=== PATIENT | male | born 1945 | race Caucasian/White ===

== ENCOUNTER 2016-11-05 20:33 | Inpatient (IN) | payer OTHER ==
[~2016-11-05] VITALS: Ht 162.6 cm; Wt 66.3 kg
--- NOTE | ~2016-11-05 | PR ---
[place], [place] PROGRESS NOTE [id number] UNIT #: [id number] ROOM: 314 DOCTOR: YO ROSS BIRTHDATE: [birth year] DOS: 11/11/2016 CHIEF COMPLAINT: "Good morning." SUMMARY OF VISIT: The patient was assessed in the dining room where he had just finished up working with PT and OT. He engaged in conversation. He was a little standoffish this morning, but he answered my questions appropriately. MENTAL STATUS: Alert and oriented to person, place, approximate time. Mood is fairly stable. States that his sleep is better. Good appetite. No overt signs of auditory or visual hallucinations, delusions, or paranoia. PLAN: We will continue with the trazodone at 150 mg at bedtime to help with depression and sleep. He is on the maximum dose of Namenda and Exelon for his dementia. His Depakote was increased yesterday. His valproic acid level came back this morning at 64.4, which is in the therapeutic range. I am going to hold his Depakote where it is right now. Let us see how he does over the next couple of days and make adjustments as needed. Monitor for some behaviors, impulsivity, etc. DANTE ROSS CNP CM:PNTRANS [id number] YO ROSS 11/11/16 0854 interface
--- NOTE | ~2016-11-05 | PR ---
[place], [place] PROGRESS NOTE [id number] UNIT #: [id number] ROOM: 314 DOCTOR: MENDEL DUNN MD BIRTHDATE: [birth year] DOS: 11/14/2016 CHIEF COMPLAINT: "Yeah, they are making me do this work here." SUMMARY OF THE VISIT: The patient was interviewed as he was engaging in physical therapy and occupational therapy. He was pleasantly confused upon approach. When asked how long he has been here, he reported he has been here 8 weeks. He offered no other complaints. MENTAL STATUS: He is alert and oriented to person only. He was pleasant. Mood does seem to be trending towards euthymia. Affect is more appropriate. There is no mood lability. There is no hypomania or marcello. There are no auditory or visual hallucinations. No delusions are present. Short-term memory is exceedingly poor. PLAN: I will renew the Ativan so he has it if he needs it and recheck a valproic acid level in the a.m. The last level has been therapeutic. I will make certain that we are in a good range. We will go ahead and proceed with discharge then when psychiatrically stable. MENDEL DUNN MD CM:PNTRANS [id number] MENDEL DUNN MD 11/14/16 1049 interface
--- NOTE | ~2016-11-05 | DS ---
[place], [place] DISCHARGE SUMMARY NAME: [id number] UNIT #: [id number] ROOM: 314 DOCTOR: MENDEL DUNN MD BIRTHDATE: [birth year] DOS: 11/16/2016 CHIEF COMPLAINT: "It's almost time for breakfast." HISTORY OF PRESENT ILLNESS: This is a 71-year-old white male who is a resident of [facility] in [place], [place]. The patient prior to admission had become increasingly verbally and physically aggressive toward staff and others. Most recently, he had his Zoloft discontinued, and since that time, the staff has noticed that he is becoming increasingly more aggressive. He has been biting and kicking at staff. He has been exit seeking, and when redirected, has been verbally and physically aggressive towards staff. He has been increasingly more confused and disoriented and it has been increasingly more difficult to redirect him. Attempts to adjust his medications while at the long-term care facility have been unsuccessful and his behavior has continued to escalate, putting himself and others at risk for harm. He is admitted now to rule out any organic factors and to attempt to stabilize on medication while engaging in individual and leary milieu activity. PAST MEDICAL HISTORY: Remarkable for chronic back pain, Alzheimer's dementia, hypertension, major depression, recurrent, and vitamin D deficiency. SUMMARY OF HOSPITAL COURSE: The patient was maintained on his Namenda 10 mg twice daily and Exelon patch 13.3 mg daily, both of these being utilized to help maintain or improve ADLs, behavior, and cognition. He was started on Depakote 500 mg 3 times daily to decrease mood lability and was given trazodone 100 mg at bedtime, not only to aid sleep but to act as an antidepressant. Trazodone was eventually increased to 150 mg at bedtime with good results. The Depakote had a significant calming effect and his mood lability consistently stabilized to the point where he was bright and pleasant. He remained confused and disoriented, but he was able to engage in conversation and did not exhibit any type of verbal or physical aggression towards others. He tolerated the current medication regimen well, showing no sedation or somnolence. No other side effects were noted. He had improved sufficiently to return back to [facility] then on 11/16/2016. MENTAL STATUS AT DISCHARGE: The patient was alert and oriented to self, possibly place in that he knows he is in the hospital, but not necessarily where and he did not know how long he has been here. He did not remember being at [facility] and continued to say that he came here from home. He was bright and pleasant, however, and engaging. Most of his comments tended to be disoriented and rather vague responses. There was no hypomania or marcello. There were no acute auditory or visual hallucinations noted. Short-term memory was exceedingly poor. DISCHARGE DIAGNOSES: Major depression, recurrent, with psychotic features, and impulse control disorder as well as Alzheimer's dementia. PLAN: All of his scripts have been E-scribed to [facility]. He will return to [facility] in [place] where he will be followed by myself and my nurse practitioner, Elbert Castro. [place], [place] DISCHARGE SUMMARY NAME: IRISH SERRANO UNIT #: [id number] ROOM: 314 DOCTOR: MENDEL DUNN MD BIRTHDATE: [birth year] MENDEL DUNN MD CM:DISCHARG MENDEL DUNN MD 11/16/16 0955 interface
--- NOTE | ~2016-11-05 | PR ---
[place], [place] PROGRESS NOTE NAME: IRISH SERRANO UNIT #: [id number] ROOM: 309 DOCTOR: YO ROSS BIRTHDATE: [birth year] DOS: 11/10/2016 CHIEF COMPLAINT: "Good morning." SUMMARY OF VISIT: The patient was assessed in the dining room, where he just began eating breakfast. He engaged readily in conversation. Staff notes that he has done better over the last 24 hours. He had one episode for about an hour, where he was a little bit agitated, but he was redirectable, did not wish to have any p.r.n. medications nor did they feel that he needed it at that time. MENTAL STATUS: He is alert and oriented to person, place, approximate time. Mood has been fairly stable since he has been here. He did state that his sleep was much better last night, and he was pleased with that. PLAN: We will continue with the increased trazodone at 150 mg at bedtime. I increased yesterday. He is on the maximum dose of Namenda and Exelon for his dementia. His Depakote has just been increased over the last couple of days, he is doing better, I will go ahead and put an order in to check his valproic acid level tomorrow to see if it is trending up, and we will go from there. We will continue to engage in individual and leary milieu therapy with the plan to discharge when stable. DANTE ROSS CNP CM:PNTRANS [id number] YO ROSS 11/10/16 1145 interface
--- NOTE | ~2016-11-05 | PR ---
[place], [place] PROGRESS NOTE [id number] UNIT #: [id number] ROOM: 314 DOCTOR: YO ROSS BIRTHDATE: [birth year] DOS: 11/12/2016 CHIEF COMPLAINT: "Good morning." SUMMARY OF VISIT: The patient was interviewed in the dining room where he seemed initially very sad, almost tearful and could not tell me why. He said he just kind of feels a little bit low this morning. Discussed with nursing and they stated that he does have an episode of almost sundowning for about an hour in the afternoon and then he is fine, but other than that, he is very engaging, joking, pleasant and smiling. MENTAL STATUS: He is alert and oriented to person, place and approximate to time. Mood is a little depressed today. Good sleep and good appetite. No overt signs of auditory or visual hallucinations, delusions or paranoia. Does have some cognitive deficits. PLAN: I am going to continue with the meds where he is at now. I have discussed his situation with the nurses. They are going to keep an eye on him. His Depakote level is in the therapeutic range. Let me see how he does over the next 24 hours and see if he snaps out of this before I make some adjustments. DANTE ROSS CNP CM:PNTRANS [id number] YO ROSS 11/12/16 0948 interface
--- NOTE | ~2016-11-05 | PR ---
[place], [place] PROGRESS NOTE [id number] UNIT #: [id number] ROOM: 314 DOCTOR: YO ROSS BIRTHDATE: [birth year] DOS: 11/13/2016 CHIEF COMPLAINT: "Good morning." SUMMARY OF VISIT: The patient was assessed in the dining room after he had picked out his meals for the day. He engaged pleasantly in conversation. Good eye contact. Nursing notes that he has been very pleasant over the last 24 hours. No behaviors and actually did not have a sundowning episode last night since my medication adjustment. MENTAL STATUS: Alert and oriented to person, place, approximate time. Mood trending towards euthymic, good sleep, good appetite. No overt signs of auditory or visual hallucinations, delusions, or paranoia. He still has short-term memory deficits. PLAN: Continue with the current medications. We will monitor his Depakote level. The tearfulness that he had yesterday seems to have resolved, he is sleeping better. Good appetite. Again, very engaging. Most likely, we will continue to monitor and then discharge once stable. DANTE ROSS CNP CM:PNTRANS [id number] YO ROSS 11/13/16 1440 interface
--- NOTE | ~2016-11-05 | WRIGHTHP ---
[place], [place] PATIENT HISTORY AND PHYSICAL EXAM NAME[id number] UNIT #: [id number] ROOM: 309 DOCTOR: MENDEL DUNN MD BIRTHDATE: [birth year] DOS: 11/08/2016 CHIEF COMPLAINT: Almost time for breakfast. HISTORY OF PRESENT ILLNESS: This is a 71-year-old white male who is a resident of [facility] in [place]. The patient has become increasingly more verbally and physically aggressive toward staff and others. The patient most recently had his Zoloft discontinued and since that time, the staff there has noticed that he has become increasingly more aggressive. He has been biting and kicking at staff. He has been attempting to exit seek and when redirected, he becomes verbally and physically aggressive. The patient is extremely confused and disoriented and it is hard to redirect him. Attempts to adjust his medications following the discontinuation of his Zoloft have been unsuccessful and his behavior has continued to escalate thereafter. He is admitted now to rule out any organic factors to attempt to stabilize on medication with the ultimate plan to return back to [facility] in [place]. PAST MEDICAL HISTORY: Remarkable for chronic back pain, Alzheimer's dementia, hypertension, generalized anxiety disorder, major depression recurrent, and vitamin D deficiency. ALLERGIES: HE IS ALSO ALLERGIC TO CIPRO AND DONEPEZIL. MENTAL STATUS: The patient is alert and oriented to person only. He is unaware where he is at and when asked how long he has been here, he reports he has been here for 13 days. He states that he was living at home with his brother before he came into the hospital. He is not totally certain why he is here in the hospital other than he needs to get some type of help. He is very confused and disoriented. His responses tended to be short and simple and he confabulated quite frequently. There is no symptom suggestive of depression. There are no symptoms suggestive of hypomania or marcello. There is some delusional system noted. He processes slowly. Short term memory is exceedingly poor. DIAGNOSES: Brief psychotic disorder and Alzheimer dementia. PLAN: He has already been started and maintained on Namenda 10 mg twice daily, Exelon patch 13.3 mg daily. He has been started on Depakote 500 mg 3 times daily to decrease his mood lability and was given trazodone 100 mg at bedtime to aid his sleep. We will continue to rule out organic factors, continue to engage him in individual and leary milieu activity with the ultimate plan to return back to [facility] when stable. [place], [place] PATIENT HISTORY AND PHYSICAL EXAM NAME: IRISH SERRANO UNIT #: [id number] ROOM: 309 DOCTOR: MENDEL DUNN MD BIRTHDATE: [birth year] MENDEL DUNN MD CM:HISPHYS:PATIENT HISTORY AND PHYSICAL EXAMINATION [phone] MENDEL DUNN MD 11/08/16 0753 interface
--- NOTE | ~2016-11-05 | PR ---
[place], [place] PROGRESS NOTE NAME: IRISH SERRANO UNIT #: [id number] ROOM: 309 DOCTOR: YO ROSS BIRTHDATE: [birth year] DOS: 11/09/2016 CHIEF COMPLAINT: "I did not sleep well." SUMMARY OF VISIT: The patient was assessed in the dining room, where he was sitting in a wheelchair. He engaged in conversation and states that his sleep was really bad last night. He admits to having really bad mood swings that was one issue. I reviewed with the nurses this morning that his mood is quite labile throughout the day. He did state that he was little irritable this morning only because he was frustrated because of poor sleep. MENTAL STATUS: He is alert and oriented to person. I think place, unsure about time. He is having mood lability, no overt signs of auditory or visual hallucinations, delusions or paranoia. PLAN: I will try to affect his sleep if I can and thereby may be helping with his mood. I am going to increase his trazodone to 150 mg at bedtime. He is on the maximum dose of Namenda and Exelon for his dementia. His valproic acid level came back in the low therapeutic range of 52.9, but his Depakote had just been increased. I am going to see how he does over the next 24 hours. We can always adjust the Depakote if we need be, and we can go from there. We will continue to try to engage in individual and leary milieu therapy and with a plan to discharge once stable. DANTE ROSS CNP CM:PNTRANS [id number] YO ROSS 11/09/16 1015 interface
[2016-11-06] MEDS ORDERED: NORVASC5 MG PO (17:15)
[2016-11-06] MEDS ORDERED: BACLOFEN20 M1 PO (17:16)
[2016-11-06] MEDS ORDERED: DULCOLAX5 M1 PO (17:17)
[2016-11-06] MEDS ORDERED: VITAMIN D31000 I1 PO (17:18)
[2016-11-06] MEDS ORDERED: TRAMADOL HCL50 MG PO (17:18)
[2016-11-06] MEDS ORDERED: ATIVAN1 MG PO (17:20)
[2016-11-06] MEDS ORDERED: ATIVAN2 MG/ML IM (17:21)
[2016-11-06] MEDS ORDERED: GEODON20 M1 IM (17:27)
[2016-11-06] MEDS ORDERED: DEPAKOTE500 MG PO (17:29)
[2016-11-06] MEDS ORDERED: EXELON13.3 MG/21 TD (17:30)
[2016-11-06] MEDS ORDERED: NAMENDA-28 PO (17:30)
[2016-11-06] MEDS ORDERED: ONE-TABLET-DAI1 EACH PO (17:31)
[2016-11-06] MEDS ORDERED: TRAZADONE HYDR100 MG PO (17:32)
[2016-11-07 18:38] VITALS: BP 144/69
[2016-11-08 07:41] LABS: BASO % 0.7 % (0.0-1.0); EOS # 0.2 10*3/uL (0.0-0.4); EOS % 2.7 % (1.0-4.0); HEMATOCRIT 35.2 % (42.0-52.0); HEMOGLOBIN 11.3 g/dl (14.0-18.0); LYMPH % 17.2 % (27.0-41.0); MEAN CELL VOLUME 91.2 fl (80.0-94.0); MEAN CORPUSCULAR HGB 29.3 pg (27.0-31.0); MEAN CORPUSCULAR HGB CONC 32.1 g/dl (33.0-37.0); MEAN PLATELET VOLUME 10.1 fl (9.6-12.3); MONO # 0.5 10*3/uL (0.1-1.0); MONO % 8.4 % (3.0-9.0); NEUT # 4.2 10*3/uL (2.3-7.9); NEUT % 70.5 % (47.0-73.0); PLATELET COUNT AUTOMATED 167 10*3/uL (130-400); RED BLOOD COUNT 3.86 10*6/uL (4.50-5.90); RED CELL DISTRI WIDTH 14.6 % (0-14.5)
[2016-11-08 07:57] VITALS: BP 119/87
[2016-11-08 08:03] LABS: HEMOGLOBIN A1c 4.8 % (4.8-5.6)
[2016-11-08 08:07] LABS: ALBUMIN 3.1 gm/dl (3.1-4.5); ALKALINE PHOSPHATASE 74 U/L (45-117); BILIRUBIN, TOTAL 0.4 mg/dl (0.2-1.0); BUN 30 mg/dl (7-24); CARBON DIOXIDE 27 mmol/L (21-32); CHLORIDE 109 mmol/L (98-107); CHOLESTEROL 178 mg/dL (<200); EST GLOM FILT AFRICAN AMERICAN > 60 ml/min; GLUCOSE 78 mg/dL (65-99); HDL CHOLESTEROL 41 mg/dl (40-60); LDL CHOLESTEROL 108 mg/dL (9-159); POTASSIUM 3.3 mmol/L (3.5-5.1); SGOT/AST 16 IU/L (3-35); SGPT/ALT 19 U/L (12-78); SODIUM 146 mmol/L (136-145); TRIGLYCERIDES 147 mg/dl (<150); VLDL CHOLESTEROL 29 mg/dL (6-40)
[2016-11-08 08:28] LABS: FOLIC ACID 12.32 ng/mL (>5.38); VITAMIN D, 25-HYDROXY 35.9 ng/mL (30-100)
[2016-11-08 20:28] VITALS: BP 162/70
[2016-11-09 07:51] VITALS: BP 121/60
[2016-11-09 19:03] LABS: BILIRUBIN NEGATIVE (NEGATIVE); BLOOD 3+ (NEGATIVE); CLARITY SL CLOUDY (CLEAR); COLOR YELLOW (YELLOW); GLUCOSE NEGATIVE (NEGATIVE); KETONE TRACE (NEGATIVE); LEUKO ESTERASE NEGATIVE (NEGATIVE); NITRITE NEGATIVE (NEGATIVE); PROTEIN 2+ (NEGATIVE); SPECIFIC GRAVITY >= 1.030 (1.005-1.030); UROBILINOGEN 0.2 E.U./dl (0.2-1.0)
[2016-11-09 19:15] LABS: RBC TNTC rbc/hpf (0-2)
[2016-11-09 19:16] LABS: BACTERIA 3+; URINE REFLEX COMMENT YES (NO)
[2016-11-09 20:04] VITALS: BP 146/54
[2016-11-10 07:44] LABS: BASO # 0.1 10*3/uL (0.0-0.1); EOS # 0.2 10*3/uL (0.0-0.4); EOS % 2.9 % (1.0-4.0); HEMATOCRIT 38.3 % (42.0-52.0); HEMOGLOBIN 12.3 g/dl (14.0-18.0); LYMPH # 1.4 10*3/uL (1.3-4.4); LYMPH % 26.8 % (27.0-41.0); MEAN CELL VOLUME 90.8 fl (80.0-94.0); MEAN CORPUSCULAR HGB 29.1 pg (27.0-31.0); MEAN CORPUSCULAR HGB CONC 32.1 g/dl (33.0-37.0); MEAN PLATELET VOLUME 10.1 fl (9.6-12.3); MONO # 0.5 10*3/uL (0.1-1.0); MONO % 8.9 % (3.0-9.0); NEUT # 3.2 10*3/uL (2.3-7.9); NEUT % 59.8 % (47.0-73.0); PLATELET COUNT AUTOMATED 180 10*3/uL (130-400); RED BLOOD COUNT 4.22 10*6/uL (4.50-5.90); RED CELL DISTRI WIDTH 14.5 % (0-14.5); WHITE BLOOD COUNT 5.3 10*3/uL (4.8-10.8)
[2016-11-10 08:01] VITALS: BP 120/60
[2016-11-10 08:04] LABS: BUN 24 mg/dl (7-24); CARBON DIOXIDE 23 mmol/L (21-32); CHLORIDE 110 mmol/L (98-107); EST GLOM FILT AFRICAN AMERICAN > 60 ml/min; GLUCOSE 81 mg/dL (65-99); POTASSIUM 3.5 mmol/L (3.5-5.1); SODIUM 145 mmol/L (136-145)
[2016-11-10 20:34] VITALS: BP 143/71
[2016-11-11 08:48] VITALS: BP 136/56
[2016-11-11 20:34] VITALS: BP 140/59
[2016-11-12 08:09] VITALS: BP 128/54
[2016-11-12 20:06] VITALS: BP 144/77
[2016-11-13 08:22] VITALS: BP 146/72
[2016-11-13 20:12] VITALS: BP 152/56
[2016-11-14 08:07] VITALS: BP 140/57
[2016-11-14 20:00] VITALS: BP 147/62
[2016-11-15 08:03] VITALS: BP 139/56
[2016-11-15 08:18] VITALS: BP 139/56
[2016-11-15 20:45] VITALS: BP 139/71
[2016-11-16 06:41] LABS: BASO % 0.5 % (0.0-1.0); EOS # 0.1 10*3/uL (0.0-0.4); EOS % 2.1 % (1.0-4.0); HEMOGLOBIN 10.8 g/dl (14.0-18.0); LYMPH # 1.1 10*3/uL (1.3-4.4); LYMPH % 19.7 % (27.0-41.0); MEAN CELL VOLUME 88.9 fl (80.0-94.0); MEAN CORPUSCULAR HGB CONC 33.8 g/dl (33.0-37.0); MEAN PLATELET VOLUME 9.4 fl (9.6-12.3); MONO # 0.7 10*3/uL (0.1-1.0); MONO % 11.3 % (3.0-9.0); NEUT # 3.8 10*3/uL (2.3-7.9); NEUT % 65.9 % (47.0-73.0); PLATELET COUNT AUTOMATED 149 10*3/uL (130-400); WHITE BLOOD COUNT 5.7 10*3/uL (4.8-10.8)
[2016-11-16 07:19] LABS: BUN 24 mg/dl (7-24); CARBON DIOXIDE 32 mmol/L (21-32); CHLORIDE 105 mmol/L (98-107); EST GLOM FILT AFRICAN AMERICAN > 60 ml/min; GLUCOSE 88 mg/dL (65-99); POTASSIUM 3.6 mmol/L (3.5-5.1); SODIUM 144 mmol/L (136-145)
[2016-11-16 08:22] VITALS: BP 137/64
[2016-11-16] MEDS ORDERED: NAMENDA10 MG PO (08:27)
[2016-11-16] MEDS ORDERED: DIVALPROEX SOD500 MG PO (08:27)
[2016-11-16] MEDS ORDERED: EXELON13.3 MG/21 T (08:27)
[2016-11-16] MEDS ORDERED: TRAZODONE150 MG PO (08:27)
[2016-11-16] MEDS ORDERED: NORVASC10 MG PO (11:16)
== END 2016-11-16 12:45 | disposition other institution (70) | DRG 57 ==
LOC: 3N 20:33
PROVIDERS: Internal Medicine; Psychiatry & Neurology Psychiatry; Student in an Organized Health Care Education/Training Program
DX: G30.1 Alzheimer's disease with late onset (principal); F33.3 Major depressive disorder, recurrent, severe with psychotic symptoms; F02.80 Dementia in other diseases classified elsewhere, unspecified severity, without behavioral disturbance, psychotic disturbance, mood disturbance, and anxiety; F23 Brief psychotic disorder; G89.29 Other chronic pain; M54.9 Dorsalgia, unspecified; I10 Essential (primary) hypertension; E55.9 Vitamin D deficiency, unspecified; F41.1 Generalized anxiety disorder; Z88.8 Allergy status to other drugs, medicaments and biological substances; Z88.1 Allergy status to other antibiotic agents